=== PATIENT | male | born 1975 | race Caucasian/White ===

== ENCOUNTER 2019-12-30 07:20 | Emergency (ER) | payer OTHER, SELFPAY | END 2019-12-30 08:10 | disposition home or self-care (01) | LOC: MADERS 07:20 | DX: R21 Rash and other nonspecific skin eruption (principal); H05.229 Edema of unspecified orbit; R42 Dizziness and giddiness; F41.9 Anxiety disorder, unspecified; F31.9 Bipolar disorder, unspecified; F90.9 Attention-deficit hyperactivity disorder, unspecified type; F17.210 Nicotine dependence, cigarettes, uncomplicated | CPT/HCPCS: 99283 ==

== ENCOUNTER 2020-11-01 15:25 | Emergency (ER) | payer BC, SELFPAY ==
[2020-11-01] MEDS ORDERED: Boostrix 0.5 ML (Tdap) VIAL ONE (16:13)
== END 2020-11-01 16:24 | disposition home or self-care (01) ==
LOC: MADERS 15:25
DX: L03.114 Cellulitis of left upper limb (principal); F17.210 Nicotine dependence, cigarettes, uncomplicated
CPT/HCPCS: 90471; 90715

== ENCOUNTER 2024-01-03 10:05 | Emergency (ER) | payer BC ==
[2024-01-03] MEDS ORDERED: Boostrix 0.5 ML (Tdap) VIAL (>/=7 yrs of age) ONE (10:29)
[2024-01-03] MEDS ORDERED: Sulfameth/Trimethoprim DS 800-160mg TAB ONE (10:34)
[2024-01-03] MEDS ORDERED: Lidocaine 1% PF 5 ML VIAL ONE (11:06)
== END 2024-01-03 11:50 | disposition home or self-care (01) ==
LOC: MADERS 10:05
DX: L03.011 Cellulitis of right finger (principal)
CPT/HCPCS: 90715